=== PATIENT | female | born 1965 | race Caucasian/White ===

== ENCOUNTER 2016-10-19 19:26 | Emergency (ER) | payer OTHER | END 2016-10-19 20:00 | disposition home or self-care (01) | LOC: ER 19:26 | DX: N34.2 Other urethritis (principal); F31.9 Bipolar disorder, unspecified; F41.9 Anxiety disorder, unspecified; F17.210 Nicotine dependence, cigarettes, uncomplicated; Z90.710 Acquired absence of both cervix and uterus; Z79.899 Other long term (current) drug therapy ==